=== PATIENT | male | born 1960 | race Native Hawaiian/Other Pacific Islander ===

== ENCOUNTER 2019-07-30 10:42 | Outpatient (CLI) | payer OTHER | END 2019-07-30 20:59 | disposition home or self-care (01) | LOC: RAD 10:42 | DX: R06.02 Shortness of breath (principal) ==

== ENCOUNTER 2021-05-06 08:19 | Outpatient (CLI) | payer OTHER | END 2021-05-06 20:09 | disposition home or self-care (01) | LOC: LABW 08:19 | PROVIDERS: ATTEND Physician Assistant | DX: Z77.010 Contact with and (suspected) exposure to arsenic (principal); N40.0 Benign prostatic hyperplasia without lower urinary tract symptoms | CPT/HCPCS: 36415; 82105; 82378; 86316 ==